=== PATIENT | female | born 1975 | race Caucasian/White ===

== ENCOUNTER 2016-09-12 14:13 | Emergency (ER) | payer OTHER ==
[~2016-09-12 14:13] MED LIST: ACETAMINOPHEN PO; AMOXICILLIN500 M1 PO; CLONIDINE HCL0.1 MG PO; DENTAL BALLS; IBUPROFEN800 MG PO; NEURONTIN300 MG PO; PRENATAL VITAMI1 TA3 PO; ROBAXIN500 MG PO; ULTRAM PO; VOLTAREN50 MG PO; VOLTAREN75 MG PO
== END 2016-09-12 17:40 ==
LOC: CED 14:13
DX: H16.003 Unspecified corneal ulcer, bilateral (principal); I11.0 Hypertensive heart disease with heart failure; Z91.19 Patient's noncompliance with other medical treatment and regimen; F17.210 Nicotine dependence, cigarettes, uncomplicated
CPT/HCPCS: 99285